=== PATIENT | female | born 1990 | race Caucasian/White ===

== ENCOUNTER 2016-10-28 12:31 | Observation (INO) | payer OTHER, MEDICAID | END 2016-10-28 15:15 | disposition home or self-care (01) | LOC: FLD 12:31 | PROVIDERS: ADMIT Midwife; ATTEND Midwife | DX: O47.03 False labor before 37 completed weeks of gestation, third trimester (principal); O34.219 Maternal care for unspecified type scar from previous cesarean delivery; Z3A.38 38 weeks gestation of pregnancy | CPT/HCPCS: 59025; G0378 ==

== ENCOUNTER 2016-10-30 05:33 | Inpatient (IN) | payer OTHER, MEDICAID ==
[2016-10-30] MEDS ORDERED: LR 500 ML IV ONE (05:42)
[2016-10-30] MEDS ORDERED: LIDOCAINE 1% 30 ML SDV ONE (05:56)
[2016-10-30] MEDS ORDERED: TERBUTALINE SULFATE 1 MG/ML VIAL ONE (05:57)
[2016-10-30] MEDS ORDERED: AMMONIA AROMATIC 1 EACH AMP IH ONE (05:57)
[2016-10-30] MEDS ORDERED: OLIVE OIL 118 ML BTL ONE (05:57)
[2016-10-30] MEDS ORDERED: MISOPROSTOL 200 MCG TAB ONE (05:57)
[2016-10-30] MEDS ORDERED: OXYTOCIN 10 UNIT/ML VIAL ONE (05:57)
[2016-10-30] MEDS ORDERED: LR 1,000 ML IV SCH (06:00)
[2016-10-30 06:10] LABS: % IMMATURE GRANULYOCYTES 0.7 % (0.0-1.1); ABSOLUTE IMMATURE GRANULOCYTES 0.06 10^3/uL (0.00-0.10); ADD DIFF? NO; ADD MORPH? YES; ADD SCAN? NO; ATYPICAL LYMPHOCYTE FLAG 10 (0-99); FRAGMENT RBC FLAG 40 (0-99); HEMATOCRIT 28.6 % (38.0-47.0); HEMOGLOBIN 8.7 g/dL (12.6-16.3); LEFT SHIFT FLG 0 (0-99); LIPEMIA HEMOLYSIS FLAG 80 (0-99); MEAN CELL HEMOGLOBIN 20.8 pg (27.9-34.1); MEAN CELL HEMOGLOBIN CONCENTR. 30.4 g/dL (32.4-36.7); PLATELET CLUMPS FLAG 30 (0-99); PLATELET COUNT 199 10^3/uL (150-400); RED BLOOD CELL COUNT 4.19 10^6/uL (4.18-5.33); RED CELL DISTRIBUTION WIDTH 18.6 % (11.5-15.2)
[2016-10-30 06:25] LABS: MEAN CELL VOLUME 68.3 fL (81.5-99.8)
[2016-10-30] MEDS ORDERED: CEFAZOLIN 2 GM/DEXTROSE/100 ML BAG IV ONE (07:03)
[2016-10-30 07:06] LABS: HYPOCHROMIA 1+; MACROCYTES 1+; POLYCHROMASIA 2+; STOMATOCYTES 1+
[2016-10-30 07:07] LABS: PLATELET ESTIMATE ADEQUATE (ADEQ)
[2016-10-30] MEDS ORDERED: ceFAZolin 2 GM/DEXTROSE 100 ML IV ONE (07:19)
[2016-10-30] MEDS: CITRIC ACID/SODIUM CITRATE 30 ML UDCUP PO ONE ×2 (07:19→07:26)
[2016-10-30] MEDS ORDERED: fentaNYL 100 MCG/2 ML INJ ONE (07:33)
[2016-10-30] MEDS ORDERED: morphINE PF 5 MG/10 ML INJ ONE (07:33)
[2016-10-30] MEDS ORDERED: HYDROCODONE/APAP 5/325 TAB PO PRN (07:34)
[2016-10-30] MEDS ORDERED: PHENYLEPHRINE HCL 100 MCG/ML SYR ONE (07:34)
[2016-10-30] MEDS ORDERED: ONDANSETRON 4 MG/2 ML VIAL ONE (07:59)
[2016-10-30] MEDS ORDERED: OXYTOCIN 100 UNITS/10 ML VIAL ONE (08:35)
--- NOTE | 2016-10-30 08:37 | OBPROC ---
- Delivery Pre-op Diagnoses: Repeat C/S Post-op Diagnoses: Repeat C/S Procedure: Repeat Surgeon: Laura Joyner Cripple Cutter: Ina Roger Anesthesiologist: Romero Del Rosario Follow Up Rep/MILL CRANE OPERATOR: Leelee Sky Anesthesia: Spinal Complications: None IV Fluid (ml): 3,000 EBL: 700 - Marshall Info Infant A Delivery Date: 10/30/16 Delivery Time: 08:20 Sex of : Female Score (1 Min): 8 Score (5 Min): 9
--- NOTE | 2016-10-30 09:08 | GOP ---
[f rep st] OPERATIVE REPORT DATE OF OPERATION: 10/30/2016 SURGEON: Laura Richards MD SIGN LANGUAGE INSTRUCTOR: Ina Roger, certified nurse platform inspector. ANESTHESIA: Spinal. PREOPERATIVE DIAGNOSIS: Intrauterine at 39 and 0/7 weeks gestation with previous section x2. Desires repeat. POSTOPERATIVE DIAGNOSIS: Intrauterine at 39 and 0/7 weeks gestation with previous section x2. Desires repeat. PROCEDURE PERFORMED: Repeat low transverse section. FINDINGS: Viable female infant, Apgars 8 and 9. Vertex presentation. Normal uterus, fallopian tubes, and ovaries. ESTIMATED BLOOD LOSS: 700 mL. INDICATIONS: The patient is a 25-year-old, G3, P2, female who is at 39 and 0/7 weeks presents for repeat low transverse section. The patient was taken to the operating room, where she was prepped and draped in normal sterile fashion in a dorsal supine position. A surgical timeout was performed verifying the patient's name, date of , planned procedure and site. The patient received 2 g of Ancef preoperatively. A Pfannenstiel skin incision was made with a scalpel and carried through to the underlying fascia. The fascia was incised in the midline and extended laterally. The superior aspect of the fascia was grasped with Sylvain clamps. The rectus muscles dissected off bluntly and with the Bentley scissors. The inferior aspect of the fascia was grasped with Sylvain clamps, the rectus muscles dissected off bluntly and with the Bentley scissors. The peritoneum was identified and entered in bluntly. The peritoneum was divided with the Metzenbaum scissors. The bladder blade was placed, and the vesicouterine peritoneum was incised with the Metzenbaum scissors. A bladder flap was created digitally. The bladder blade was replaced. The uterus was incised. The uterine incision was extended laterally with blunt dissection. The infant was delivered. The cord was clamped and cut. The was handed to the nurse practitioner. The placenta was delivered spontaneously. The uterus was exteriorized and cleared of all clots and debris. The uterine incision was reapproximated with 0 Monocryl in a running, locked fashion in 2 layers. The gutters were cleared of all clots and debris. The uterus was returned to the abdomen. The uterine was inspected and noted to be hemostatic. The subfascial spaces were inspected and noted to be hemostatic. The fascia was reapproximated with an 0 Vicryl in a running fashion. The subcutaneous tissue was irrigated and the skin was closed with 4- 0 Monocryl. All counts were correct x2. DESCRIPTION OF PROCEDURE: COMPLICATIONS: None. OUTCOME: Stable to recovery room. /[id number]/MODL MTDD
[2016-10-30] MEDS ORDERED: NALOXONE HCL 0.4 MG/ML INJ IVP PRN (09:43)
[2016-10-30] MEDS ORDERED: ONDANSETRON 4 MG/2 ML VIAL IVP PRN (09:43)
[2016-10-30] MEDS ORDERED: PHENYLEPHRINE HCL 100 MCG/ML SYR IVP PRN (09:43)
--- NOTE | 2016-10-30 09:51 | PREANESOB ---
Obstetric Pre-Anesthesia Info - General Info Proposed Procedure: Repeat C Section : 4 Para: 3 WBD: 39 - Info Status: Full Term Monitors: External FHR Baseline (bpm): 140 FHR Pattern: Reassuring - Labor Status Section History: Repeat Indications for Current Section: Elective/Repeat Labor Epidural: No Anesthesia ROS: Prior C Section x 2 (epidural and spinal). Mild asthma - uses albuterol inhaler rarely. Allergies/Adverse Reactions: Allergy/AdvReac Type Severity Reaction Status Date / Time latex Allergy Mild Verified 03/27/15 01:58 Home Medications: Medication Instructions Recorded Albuterol Sulfate [Proair 90 mcg IH PRN 03/27/15 Respiclick] Vit #76/Iron,Carb/FA [Pnv 1 each PO DAILY 03/27/15 29-1 Tablet] Visit Medications: Generic Name Dose Route Start Last Admin Trade Name Freq PRN Reason Stop Dose Admin Hydrocodone Bitart/Acetaminophen 1 - 2 tab 10/30/16 07:34 [place] 5/325 PO 11/09/16 07:33 Q4HRS PRN Pain, Moderate Docusate Sodium 100 mg 10/30/16 07:34 Colace PO 04/28/17 07:33 BID PRN Constipation Lactated Ringer's 1,000 mls @ 125 mls/hr 10/30/16 06:00 Lr IV 04/28/17 05:59 CONT TATO Ibuprofen 600 mg 10/30/16 07:34 Motrin PO 04/28/17 07:33 Q6HRS PRN Inflammation Ketorolac Tromethamine 30 mg 10/30/16 12:00 Toradol IVP 10/31/16 06:01 Q6HRS TATO Simethicone 80 mg 10/30/16 07:34 Mylicon PO 04/28/17 07:33 .TIDMEALS AND HS PRN Gas Discontinued Medications Generic Name Dose Route Start Last Admin Trade Name Freq PRN Reason Stop Dose Admin Ammonia (Aromatic Spirit) Confirm 10/30/16 05:57 Ammonia Aromatic Administered 10/30/16 05:58 Dose 1 each IH .STK-MED ONE Cefazolin Sodium/Dextrose Confirm 10/30/16 07:03 Ancef 2 Gm (Premix) Administered 10/30/16 07:04 Dose 2 gm IV .STK-MED ONE Citric Acid/Sodium Citrate 30 ml 10/30/16 05:42 10/30/16 07:26 Bicitra PO 10/30/16 05:43 Not Given ONCALL ONE Ephedrine Sulfate Confirm 10/30/16 05:57 Ephedrine Sulfate Administered 10/30/16 05:58 Dose 50 mg .ROUTE .STK-MED ONE Fentanyl Confirm 10/30/16 07:33 Sublimaze Administered 10/30/16 07:34 Dose 100 mcg .ROUTE .STK-MED ONE Lactated Ringer's 500 mls @ 0 mls/hr 10/30/16 05:42 10/30/16 07:25 Lr IV 10/30/16 05:43 500 mls ONCE ONE Administration As Directed Cefazolin Sodium/Dextrose 100 mls @ 200 mls/hr 10/30/16 07:19 10/30/16 07:26 Ancef 2 Gm (Premix) IV 10/30/16 07:48 100 mls ONCALL ONE Administration Protocol Lidocaine HCl Confirm 10/30/16 05:56 Lidocaine Hcl 1% Administered 10/30/16 05:57 Dose 30 ml .ROUTE .STK-MED ONE Misoprostol Confirm 10/30/16 05:57 Cytotec Administered 10/30/16 05:58 Dose 1,000 mcg .ROUTE .STK-MED ONE Morphine Sulfate Confirm 10/30/16 07:33 Morphine Pf 5 Mg/10 Ml Administered 10/30/16 07:34 Dose 5 mg .ROUTE .STK-MED ONE [place] Oil Confirm 10/30/16 05:57 Sweet Oil Administered 10/30/16 05:58 Dose 118 ml .ROUTE .STK-MED ONE Ondansetron HCl Confirm 10/30/16 07:59 Zofran Administered 10/30/16 08:00 Dose 8 mg .ROUTE .STK-MED ONE Oxytocin Confirm 10/30/16 05:57 Pitocin Administered 10/30/16 05:58 Dose 40 unit .ROUTE .STK-MED ONE Oxytocin Confirm 10/30/16 08:35 Pitocin Administered 10/30/16 08:36 Dose 100 units .ROUTE .STK-MED ONE Phenylephrine HCl Confirm 10/30/16 07:34 Piero-Synephrine Administered 10/30/16 07:35 Dose 1,000 mcg .ROUTE .STK-MED ONE Terbutaline Sulfate Confirm 10/30/16 05:57 Brethine Administered 10/30/16 05:58 Dose 1 mg .ROUTE .STK-MED ONE - Anesthesia History Response to Local Anesthetics: Normal Anesthesia & Operative History: No Prior Problems Family Anesthesia History: Negative - Social History Substance Use/Abuse: Denies - Focused Exam Latest Vital Signs (Nursing): Temp Pulse Resp BP Pulse Ox 36.4 C 98 17 98/62 L 99 10/30/16 09:10 10/30/16 09:10 10/30/16 09:10 10/30/16 09:10 10/30/16 09:10 Blood Pressure: 119/71 Heart Rate: 92 Respiratory Rate: 16 Height/Weight (Nursing): Height 157.48 cm Weight 70.76 kg Physical Exam: Within normal limits. Respiratory: lungs clear ASA Status: II Labs: 10/30/16 05:50 Patient ABO/Rh O NEGATIVE 10/30/16 05:50 - Plan Anesthetic Plan: SAB Consent Signed and on Chart: Yes Patient/Guardian Understands and Agrees to Plan: Yes
--- NOTE | 2016-10-30 09:56 | POSTANESTH ---
Post Anesthetic Evaluation Cardiovascular Status: Normal, Stable Respiratory Status: Normal, Stable, Similar to Pre-op Cond. Level of Consciousness/Mental Status: Can Participate in Eval, Alert and Oriented Pain Control: Adequate, Prn Tx Ordered Nausea/Vomiting Control: Adequate, Prn Tx Ordered Complications Possibly Related to Anesthesia: None Noted (Tolerated spinal well , BP treated, comfortable for surgery, to PACU, no pain or nausea.)
[2016-10-30] MEDS: KETOROLAC 30 MG/1 ML SDV IVP SCH ×2 (18:27→22:11)
[2016-10-30] MEDS: DOCUSATE SODIUM 100 MG CAP PO PRN (22:11)
[2016-10-31] MEDS: KETOROLAC 30 MG/1 ML SDV IVP SCH ×2 (02:23→06:54)
[2016-10-31] MEDS: DOCUSATE SODIUM 100 MG CAP PO PRN (08:11)
[2016-10-31 08:25] VITALS: O2SAT 95
[2016-10-31] MEDS: SIMETHICONE 80 MG TAB CHEW PO PRN ×2 (14:32→18:33)
--- NOTE | 2016-10-31 20:29 | SOAPPROG ---
SOAP Progress Note Assessment/Plan: Note: Late entry note. Pt was seen at 0830 AM, note written at that time but somehow was not saved in [employer] [facility] Assessment: POD#1 s/p rLTCS Recovering appropriately Anemia: Stable, appropriate post-op given low Hct preop. Rh neg Rubella immune Plan: Routine care Rhogam Home with iron 10/31/16 20:28 10/31/16 20:29 10/31/16 20:33 Subjective: Minimal pain. Meng removed, hasn't voided yet. No heavy bleeding. Baby is latching. Objective: Vital Signs Temp Pulse Resp BP Pulse Ox 36.7 C 90 16 99/60 L 95 10/31/16 16:36 10/31/16 16:36 10/31/16 16:36 10/31/16 16:36 10/31/16 16:36 Laboratory Results 10/31/16 06:30 10/30/16 10/31/16 11/01/16 05:59 05:59 05:59 Intake Total 5450 Output Total 8050 Balance -2600 Gen: alert, awake, NAD Resp: unlabored CV: reg rate Abd: soft, appropriately tender, appropriately distended Bandage: c/d/i Ext: no eema ICD10 Worksheet Patient Problems: Problems Problem Status Onset Previous delivery, delivered Acute Labor established Acute
[2016-10-31] MEDS: IBUPROFEN 600 MG TAB PO PRN (22:42)
[2016-11-01 08:42] VITALS: BP 112/75; PULSE 84; RESP 16; TEMP 97.6
--- NOTE | 2016-11-01 08:44 | OBGCSDC ---
General Delivery Information - General Info : 4 Para: 3 Delivery Date: 10/30/16 Delivery Time: 08:10 Delivery Physician/CNM: Laura Joyner Senior Software Development Engineer: Ina Roger Admission Date: 10/30/16 Labs: Patient ABO/Rh O NEGATIVE 10/30/16 09:26 Hct 27.2 % (38.0-47.0) L 10/31/16 06:30 - Info A Sex of : Female Score (1 Min): 8 Score (5 Min): 9 - Delivery IUP (Weeks): 39 Number of Prior Sections: 2 Indications for Prior Section: Other (Specify) Indications for Current Section: Elective/Repeat Procedures: LTCS Intra-op Complications: None EBL: 700 Anesthesia: Spinal Discharge Information - Discharge Information Discharge Medications: Ibuprofen, Vitamins, Vicodin Condition: Good Instruction/Follow Up: Two Weeks Discharge Physician/CNM: Ina Roger Discharge Date: 11/01/16 Dictated: No
[2016-11-01] MEDS: IBUPROFEN 600 MG TAB PO PRN (08:54)
[2016-11-01] MEDS: DOCUSATE SODIUM 100 MG CAP PO PRN (08:54)
== END 2016-11-01 13:45 | disposition home or self-care (01) | DRG 766 ==
LOC: FLD 05:33 → FOB 10:25
PROVIDERS: ADMIT Obstetrics & Gynecology; ATTEND Obstetrics & Gynecology
PROC: 10D00Z1 Extraction of Products of Conception, Low, Open Approach (ICD-10-PCS; principal; 2016-10-30)
DX: O34.219 Maternal care for unspecified type scar from previous cesarean delivery (principal); O99.013 Anemia complicating pregnancy, third trimester; D64.9 Anemia, unspecified; O26.893 Other specified pregnancy related conditions, third trimester; Z67.41 Type O blood, Rh negative; Z3A.39 39 weeks gestation of pregnancy; Z37.0 Single live birth
CPT/HCPCS: J0690; J2274; J2370; J2405; J2590; J3010; J3105

== ENCOUNTER → 2017-09-25 | Outpatient (CLI) | payer OTHER, MEDICAID | LOC: FIMAGING 10:49 | PROVIDERS: ATTEND Family Medicine | DX: R59.0 Localized enlarged lymph nodes (principal) ==